=== PATIENT | female | born 1995 | race American Indian/Alaskan Native ===

== ENCOUNTER 2019-02-27 19:49 | Emergency (ER) | payer MEDICAID ==
[2019-02-28 02:13] VITALS: BP 107/74
== END 2019-02-28 02:04 | disposition left against medical advice (07) ==
LOC: ED 19:49
DX: R10.9 Unspecified abdominal pain (principal); Z53.21 Procedure and treatment not carried out due to patient leaving prior to being seen by health care provider

== ENCOUNTER 2020-05-15 05:14 | Emergency (ER) | payer MEDICAID ==
[2020-05-15 05:35] VITALS: BP 117/71
[2020-05-15 06:11] LABS: Basophils # (Auto) 0.1 K/mm3 (0.0-0.1); Basophils % (Auto) 0.6 % (0.0-1.8); Eosinophils # (Auto) 0.3 K/mm3 (0.0-0.4); Eosinophils % (Auto) 3.1 % (0.0-4.3); Hematocrit 34.7 % (30.3-42.9); Hemoglobin 11.3 gm/dl (10.1-14.3); Mean Corpuscular HGB Conc 33 % (30-34); Mean Corpuscular Volume 80 fl (79-97); Monocytes # (Auto) 1.1 K/mm3 (0.0-0.8); Platelet Count 408 K/mm3 (140-440); Red Blood Count 4.33 M/mm3 (3.65-5.03); Red Cell Distribution Width 15.5 % (13.2-15.2)
[2020-05-15 07:54] LABS: Bacteria,Urine 1+ /HPF (Negative); Bilirubin,Urine NEG (Negative); Blood,Urine LG (Negative); Color,Urine Yellow (Yellow); Mucus,Urine 1+ /HPF
[2020-05-15] MEDS ORDERED: ACETAMINOPHEN 325 MG TAB PO ONE (08:47)
--- NOTE | 2020-05-15 09:06 | Emergency Department Report ---
ED HPI - General Chief complaint: Vaginal Bleeding Stated complaint: ?WEEKS ,BLEEDING Time Seen by Provider: 05/15/20 07:16 Source: patient Mode of arrival: Ambulatory Limitations: No Limitations - History of Present Illness Initial comments: Patient is a 25-year-old female presents emergency room with complaints of lower abdominal cramping that began last night. She states that she has been intermittently spotting for the last 2 weeks. She denies any heavy bleeding. She states that she is not having to wear a pad or a tampon. She denies any nausea, vomiting, diarrhea, fever, dysuria. She denies any past medical history or allergies medications. She states her last menstrual cycle was March 27, 2020. She is not currently seeing an OB doctor. /P: 3/A:0 (pt has set of twins) - Related Data Previous Rx's Medication Instructions Recorded Last Taken Type Ibuprofen [Motrin] 800 mg PO Q8HR PRN #20 tablet 10/01/18 Unknown Rx oxyCODONE /ACETAMINOPHEN [Percocet 1 tab PO Q4HR #14 tab 10/01/18 Unknown Rx 5/325] Allergies Allergy/AdvReac Type Severity Reaction Status Date / Time No Known Allergies Allergy Verified 09/14/18 00:58 ED Review of Systems ROS: Stated complaint: ?WEEKS ,BLEEDING Other details as noted in HPI Comment: All other systems reviewed and negative ED Past Medical Hx - Past Medical History Previous Medical History?: Yes Hx Hypertension: No Hx Congestive Heart Failure: No Hx Diabetes: No Hx Deep Vein Thrombosis: No Hx Renal Disease: No Hx Sickle Cell Disease: No Hx Seizures: No Hx Asthma: No Hx COPD: No Hx HIV: No Additional medical history: HPV - Surgical History Past Surgical History?: No - Social History Smoking Status: Never Smoker Substance Use Type: None - Medications Home Medications: Home Medications Medication Instructions Recorded Confirmed Last Taken Type Ibuprofen [Motrin] 800 mg PO Q8HR PRN #20 tablet 10/01/18 Unknown Rx oxyCODONE /ACETAMINOPHEN [Percocet 1 tab PO Q4HR #14 tab 10/01/18 Unknown Rx 5/325] ED Physical Exam - General Limitations: No Limitations General appearance: alert, in no apparent distress - Head Head exam: Present: atraumatic, normocephalic - Eye Eye exam: Present: normal appearance - ENT ENT exam: Present: mucous membranes moist - Respiratory Respiratory exam: Present: normal lung sounds bilaterally. Absent: respiratory distress, wheezes, rales, rhonchi, stridor, chest wall tenderness, accessory muscle use, decreased breath sounds, prolonged expiratory - Cardiovascular Cardiovascular Exam: Present: regular rate, normal rhythm, normal heart sounds. Absent: systolic murmur, diastolic murmur, rubs, gallop - GI/Abdominal GI/Abdominal exam: Present: soft, normal bowel sounds. Absent: distended, tenderness, guarding, rebound, rigid - Neurological Exam Neurological exam: Present: alert, oriented X3 - Psychiatric Psychiatric exam: Present: normal affect, normal mood - Skin Skin exam: Present: warm, dry, intact ED Course Vital Signs 05/15/20 05:17 Temperature 98.4 F Pulse Rate 77 Respiratory 20 Rate Blood Pressure 117/71 O2 Sat by Pulse 98 Oximetry ED Medical Decision Making - Lab Data Result diagrams: 05/15/20 05:47 Lab Results 05/15/20 05/15/20 05/15/20 Range/Units 05:47 05:47 05:47 WBC 9.3 (4.5-11.0) K/mm3 RBC 4.33 (3.65-5.03) M/mm3 Hgb 11.3 (10.1-14.3) gm/dl Hct 34.7 (30.3-42.9) % MCV 80 (79-97) fl MCH 26 L (28-32) pg MCHC 33 (30-34) % RDW 15.5 H (13.2-15.2) % Plt Count 408 (140-440) K/mm3 Lymph % (Auto) 22.0 (13.4-35.0) % [place] % (Auto) 12.0 H (0.0-7.3) % Eos % (Auto) 3.1 (0.0-4.3) % Baso % (Auto) 0.6 (0.0-1.8) % Lymph # 2.0 (1.2-5.4) K/mm3 [place] # 1.1 H (0.0-0.8) K/mm3 Eos # 0.3 (0.0-0.4) K/mm3 Baso # 0.1 (0.0-0.1) K/mm3 Seg Neutrophils % 62.3 (40.0-70.0) % Seg Neutrophils # 5.8 (1.8-7.7) K/mm3 HCG, Quant 15971 H (0-4) mIU/mL Urine Color (Yellow) Urine Turbidity (Clear) Urine pH (5.0-7.0) Ur Specific [place] (1.003-1.030) Urine Protein (Negative) mg/dL Urine Glucose (UA) (Negative) mg/dL Urine Ketones (Negative) mg/dL Urine Blood (Negative) Urine Nitrite (Negative) Urine Bilirubin (Negative) Urine Urobilinogen (<2.0) mg/dL Ur Leukocyte Esterase (Negative) Urine WBC (Auto) (0.0-6.0) /HPF Urine RBC (Auto) (0.0-6.0) /HPF U Epithel Cells (Auto) (0-13.0) /HPF Urine Bacteria (Auto) (Negative) /HPF Urine Mucus /HPF Blood Type O POSITIVE 05/15/20 Range/Units 07:00 WBC (4.5-11.0) K/mm3 RBC (3.65-5.03) M/mm3 Hgb (10.1-14.3) gm/dl Hct (30.3-42.9) % MCV (79-97) fl MCH (28-32) pg MCHC (30-34) % RDW (13.2-15.2) % Plt Count (140-440) K/mm3 Lymph % (Auto) (13.4-35.0) % [place] % (Auto) (0.0-7.3) % Eos % (Auto) (0.0-4.3) % Baso % (Auto) (0.0-1.8) % Lymph # (1.2-5.4) K/mm3 [place] # (0.0-0.8) K/mm3 Eos # (0.0-0.4) K/mm3 Baso # (0.0-0.1) K/mm3 Seg Neutrophils % (40.0-70.0) % Seg Neutrophils # (1.8-7.7) K/mm3 HCG, Quant (0-4) mIU/mL Urine Color Yellow (Yellow) Urine Turbidity Slightly-cloudy (Clear) Urine pH 6.0 (5.0-7.0) Ur Specific [place] 1.031 H (1.003-1.030) Urine Protein 30 mg/dl (Negative) mg/dL Urine Glucose (UA) Neg (Negative) mg/dL Urine Ketones Neg (Negative) mg/dL Urine Blood Lg (Negative) Urine Nitrite Neg (Negative) Urine Bilirubin Neg (Negative) Urine Urobilinogen 2.0 (<2.0) mg/dL Ur Leukocyte Esterase Tr (Negative) Urine WBC (Auto) 6.0 (0.0-6.0) /HPF Urine RBC (Auto) 4.0 (0.0-6.0) /HPF U Epithel Cells (Auto) 15.0 H (0-13.0) /HPF Urine Bacteria (Auto) 1+ (Negative) /HPF Urine Mucus 1+ /HPF Blood Type - Radiology Data Radiology results: report reviewed OB ultrasound Interpreted by Minesh Rivera MD There is a single, living intrauterine [place]-rump length equals 1.0 cm equals 7 weeks 0 days heart rate is 135 bpm The ovaries are normal. There is no free fluid. Impression: Single, living intrauterine with estimated sonographic age of 7 weeks 0 days. There may be a tiny implant bleed near the gestational sac attachment. - Medical Decision Making Patient is a 25-year-old female presents emergency room with complaints of lower abdominal cramping that began last night. She states that she has been intermittently spotting for the last 2 weeks. She denies any heavy bleeding. She states that she is not having to wear a pad or a tampon. She denies any nausea, vomiting, diarrhea, fever, dysuria. She denies any past medical history or allergies medications. She states her last menstrual cycle was March 27, 2020. She is not currently seeing an OB doctor. /P: 3/A:0 (pt has set of twins). Vitals are normal. No abdominal tenderness on exam, no guarding, no rebound, no rigidity, normal bowel sounds, no peritoneal signs. H&H is normal. Patient is Rh+. UA without evidence of significant UTI. OB US: Single, living intrauterine with estimated sonographic age of 7 weeks 0 days. There may be a tiny implant bleed near the gestational sac attachment. [facility] was able to retrieve ultrasound report from PACS. Patient given Tylenol. Discussed all results with patient. Discussed threatened with patient and need for repeat hCG quant in 2 days. advised pt May take Tylenol as needed for cramping. Increase your water intake. Please begin taking a vitamin [id number]. please follow up with [facility]. You need to have a repeat hCG quant in 2 days. Today (05/15/2020) [place] [address]. I have given you your ultrasound report, may take this to your OB. Return to emergency room for any new or worsening symptoms. - Differential Diagnosis IUP, ectopic, subchorionic hemorrhage, hemorrhagic cyst, UTI Critical care attestation.: If time is entered above; I have spent that time in minutes in the direct care of this critically ill patient, excluding procedure time. ED Disposition Clinical Impression: Threatened miscarriage Disposition: DC-01 TO HOME OR SELFCARE Is pt being admited?: No Does the pt Need Aspirin: No Condition: Stable Instructions: Threatened Miscarriage (ED) Additional Instructions: May take Tylenol as needed for cramping. Increase your water intake. Please begin taking a vitamin [id number]. please follow up with [facility]. You need to have a repeat hCG quant in 2 days. Today (05/15/2020) [place] [address]. I have given you your ultrasound report, may take this to your OB. Return to emergency room for any new or worsening symptoms. Referrals: [facility] [Provider Group] - 2-3 Days [facility] [Provider Group] - 2-3 Days [facility] [Provider Group] - 2-3 Days Time of Disposition: 09:05 Print Language: UZBEK
--- NOTE | 2020-05-17 11:53 | Ultrasound Report ---
ULTRASOUND OBSTETRIC Indication: pain, bleeding Findings: There is a single, living intrauterine . [place]-rump length = 1.0 cm = 7 weeks, 0 day(s). heart rate is 135 beats per minute. The ovaries are normal. There is no free fluid. Impression: Single, living intrauterine with estimated sonographic age of 7 weeks, 0 day(s). There may be a tiny implant bleed near the gestational sac attachment. Signer Name: Minesh Rivera MD Signed: 05/15/2020 7:31 AM Workstation Name: [id number]
== END 2020-05-15 09:25 | disposition home or self-care (01) ==
LOC: ED 05:14
DX: O20.0 Threatened abortion (principal); Z3A.01 Less than 8 weeks gestation of pregnancy
CPT/HCPCS: 36415; 76801; 76817; 81001; 84702; 85025; 86900; 86901